=== PATIENT | female | born 1975 ===

== ENCOUNTER 2016-07-28 01:17 | Emergency (ER) | payer OTHER ==
--- NOTE | 2016-07-28 02:08 | ED ORDER SUMMARY ---
..... Patient: SHARRI MORENO OrderSheet [facility] VisitID: [id number] [place] [address] 40y, F Registration Date/Time: 07/28/2016 ORDER SHEET Weight: 63.5 kg (stated) Allergies: No Known Drug Allergy GENERAL ORDERS: Ankle 3 or 4V Left Urgent (01:34 07/28/2016 JQuivey R.N. per protocol) (Ack 1:37 Raquelegekimana) (Cancelled: Other1:43 JQuivey R.N.) Ankle 2V Left Urgent (01:43 07/28/2016 JQuivey R.N. per protocol) (Ack 1:45 Radhaimache) (1:47 JQuivey R.N.) Splint (LE) (Left) ([place]) (Fiberglass) (01:57 07/28/2016 Bj NESBITT) (Ack 2:13 JQuivey R.N.) (2:36 JQuivey R.N.) Crutches (01:58 07/28/2016 Bj NESBITT) (Ack 2:13 JQuivey R.N.) (2:36 JQuivey R.N.) MEDICATION ORDERS: Hydrocodone-APAP PO 10/650 mg (NOW) (01:57 07/28/2016 Bj NESBITT) (Ack 2:01 JQuivey R.N.) (2:04 JQuivey R.N.) IV FLUIDS: ORDER SHEET NOTES: [Electronically signed by Evert Deleon R.N. (02:37 07/28/2016)] [Electronically signed by Marcio Phelan MD (00:20 07/31/2016)] [Electronically locked/signed by Evert Deleon R.N. (02:37 07/28/2016)]
--- NOTE | 2016-07-28 02:08 | ED ORDER SUMMARY ---
..... Patient: SHARRI MORENO OrderSheet [facility] VisitID: [id number] [place] [address] 40y, F Registration Date/Time: 07/28/2016 ORDER SHEET Weight: 63.5 kg (stated) Allergies: No Known Drug Allergy GENERAL ORDERS: Ankle 3 or 4V Left Urgent (01:34 07/28/2016 JQuivey R.N. per protocol) (Ack 1:37 Raquelegekimana) (Cancelled: Other1:43 JQuivey R.N.) Ankle 2V Left Urgent (01:43 07/28/2016 JQuivey R.N. per protocol) (Ack 1:45 Radhaimache) (1:47 JQuivey R.N.) Splint (LE) (Left) ([place]) (Fiberglass) (01:57 07/28/2016 Bj NESBITT) (Ack 2:13 JQuivey R.N.) (2:36 JQuivey R.N.) Crutches (01:58 07/28/2016 Bj NESBITT) (Ack 2:13 JQuivey R.N.) (2:36 JQuivey R.N.) MEDICATION ORDERS: Hydrocodone-APAP PO 10/650 mg (NOW) (01:57 07/28/2016 Bj NESBITT) (Ack 2:01 JQuivey R.N.) (2:04 JQuivey R.N.) IV FLUIDS: ORDER SHEET NOTES: [Electronically signed by Evert Deleon R.N. (02:37 07/28/2016)] [Electronically signed by Marcio Phelan MD (00:20 07/31/2016)] [Electronically locked/signed by Evert Deleon R.N. (02:37 07/28/2016)]
--- NOTE | 2016-07-28 02:08 | ED CLINICAL REPORT ---
Clinical Report - Physicians/Mid Levels [facility] [address] [place] [address] 07/28/2016 1:20 [id number] Time Seen: 01:53 Jul 28 2016. Arrived- By private vehicle. Historian- patient. CPT: ER phys charges level 3 plus (#[id number]). HISTORY OF PRESENT ILLNESS Chief Complaint: Injury to the left ankle. The injury happened just prior to arrival. Occurred at home. ( Mechanism of injury: fell (GLF). ( Patient reports spilling some water at home and then slipping on the water as she was reaching for a towel).). The patient sustained a twisting injury. Fell. Patient is experiencing moderate pain. No other injury. REVIEW OF SYSTEMS The patient complains of pain on weight bearing. She has had swelling. No tingling, weakness, numbness, suspected foreign body or skin laceration. All systems otherwise negative, except as recorded above. PAST HISTORY COPD - Chronic Obstructive Pulmonary Disease. Asthma. Medications: PredniSONE Oral (pt unsure of dose ). Q-fritz 1 puff , 2x a day. Albuterol Sulfate Inhalation 2 puffs, PRN. Allergies: No Known Drug Allergy. SOCIAL HISTORY Light tobacco smoker (cigarette)- less than 1/2 a pack per day. No alcohol use or drug use. ADDITIONAL NOTES The nursing notes have been reviewed. PHYSICAL EXAM Vital Signs: 07/28/2016 01:26 BP: 118/73. HR: 83. RR: 17. O2 saturation: 100%. Temp: 98.3 F. Pain level now: 10/10. Appearance: Alert. Appears to be in pain. Patient in moderate distress. Head: Head atraumatic. ENT: Pharynx normal. Neck: Normal inspection. Neck supple. C-spine non-tender. CVS: Normal heart rate and rhythm. Heart sounds normal. Pulses normal. Respiratory: No respiratory distress. Breath sounds normal. Chest nontender. Abdomen: Soft and nontender. Back: Normal inspection. No tenderness. ROM normal. Skin: Skin intact. Skin warm. Extremities: Left lateral ankle: moderate tenderness, swelling and deformity consistent with a fracture of the lateral ligaments moderate. Limited ROM secondary to pain. Neurovascular intact distally. No ligamentous laxity present. No joint effusion. No abrasion or ecchymosis. No foot injury. Extremities otherwise negative. Gait: Gait not tested due to pain. Neuro, Vascular and Tendons: Vascular status intact. Sensation intact. Motor intact. Neuro: Oriented X 3. No motor deficit. No sensory deficit. LABS, X-RAYS, AND EKG Lt Ankle X-ray: Oblique fracture of the distal left fibula. No open fracture of the left fibula. Views: 3 view ankle series. Technique: good. The X-rays were independently viewed by me and interpreted contemporaneously by me. PROGRESS AND PROCEDURES Splint Application: Short leg and stirrup fiberglass splint applied to left ankle. Splint applied by tech with direct supervision by the ED physician. Reassessed extremity following splint application. Neurovascular intact. Follow-up recommended within 5 days. Course of Care: Vicodin 2 po Patient is stable. Patient/family counseled. Disposition: Discharged. Condition: stable. CLINICAL IMPRESSION Closed nondisplaced oblique fracture of the lateral malleolus of the left fibula. Fall on same level by slipping. INSTRUCTIONS Use crutches until released. Elevate affected areas above chest level today, for one days. No weight bearing. Warnings: SEDATIVE MEDICATION: You were given sedative medication during your visit. Do not drive or operate dangerous machinery. GENERAL WARNINGS: Return or contact your physician immediately if your condition worsens or changes unexpectedly, if not improving as expected, or if other problems arise. Prescription Medications: Hydrocodone/APAP 5mg/325mg: take 1 to 2 orally every 6 hours as needed for pain. Dispense fifteen (15). No refills. Follow-up: Follow up with your doctor in one week. Call for an appointment. Follow up with an orthopedic surgeon in one week. Call for an appointment. Understanding of the discharge instructions verbalized by patient and family. (Electronically signed by Marcio Phelan MD 07/31/2016 0:20)
--- NOTE | 2016-07-28 02:08 | ED NURSING NOTES ---
Clinical Report - Nurses [facility] [address] [place] [address] 07/28/2016 1:20 [id number] TRI[facility] Triage time 01:26. Acuity: LEVEL 4. Chief Complaint: INJURY TO LEFT ANKLE. 01:33. Alert. SEPSIS SCREEN: Sepsis Screen. Negative (no infection suspected/documented). AIDAN COMA SCORE: [place] Coma Scale: 15- eyes open spontaneously (4); best verbal response- oriented x 4 (5); best motor response- obeys commands (6). --01:33 Evert Deleon R.N. 01:26 07/28/16. BP: 118/73. HR: 83. RR: 17. O2 saturation: 100% on room air. Temp: 98.3 F. Pain level now: 03/05. --01:33 Evert Deleon R.N. Weight: 63.5 kg stated. Height/Length: 64 inches Per Patient. BMI: 24. --01:29 Evert Deleon R.N. Medications Albuterol Sulfate Inhalation 2 puffs, PRN. --01:29 Evert Deleon R.N. Q-fritz 1 puff , 2x a day. --01:29 Evert Deleon R.N. PredniSONE Oral (pt unsure of dose ). --01:30 Evert Deleon R.N. Allergies No Known Drug Allergy. --01:29 Evert Deleon R.N. Medication/allergy information source: the patient. --01:33 Evert Deleon R.N. History Arrived by private vehicle. Historian: patient. Accompanied by family. Primary physician ([facility]). This occurred (30 minutes ago). Occurred at home. Mechanism of injury: fell (GLF). ( Patient reports spilling some water at home and then slipping on the water as she was reaching for a towel). 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 PAST MEDICAL HX: Tetanus status: up-to-date. Immunizations: up-to-date. Last normal menstrual period was 2 weeks ago. SOCIAL HX: Current every day light tobacco smoker- less than 1/2 a pack per day. No alcohol use or drug use. No infectious disease exposure. ABUSE ASSESSMENT: No report of abuse. FALL RISK ASSESSMENT: Fall risk assessment completed. No fall risk identified. NUTRITIONAL RISK ASSESSMENT: The nutritional risk assessment revealed no deficiencies. FUNCTIONAL ASSESSMENT: Functional assessment: no impairments noted. LEARNING NEEDS ASSESSMENT: The learning needs assessment revealed no barriers. SKIN INTEGRITY ASSESSMENT: Skin integrity risk assessment completed. No skin integrity risk identified. --01:33 Evert Deleon R.N. PROBLEMS: COPD - Chronic Obstructive Pulmonary Disease. Asthma. --01:31 Evert Deleon R.N. ADDITIONAL SURGERIES: Cholecystectomy. --01:31 Evert Deleon R.N. Interventions ID band on patient. To treatment room. --01:33 Evert Deleon R.N. PHYSICAL ASSESSMENT 01:33. To room via wheelchair. GENERAL / NEURO / PSYCH: Oriented X 4. Alert. EXTREMITIES: Neuro-vascular status intact to the extremity. Left ankle: swelling. SKIN: Skin intact. Skin is warm and dry. --01:33 Evert Deleon R.N. NURSING PROGRESS NOTES 01:34. Cold pack applied to the left ankle. Two patient identifiers checked. Call light placed in reach. Side rails up x 1. Bed placed in lowest position. Brakes of bed on. Patient ready for evaluation- chart flagged. --01:34 Evert Deleon R.N. 01:40 Portable x-ray left ankle. --01:40 Evert Deleon R.N. 02:04 07/28/2016 Hydrocodone-APAP (Hydrocodone-Acetaminophen) PO 5/325 mg Tablets 2 tab given. Allergies verified, confirmed 5 rights and sedative warning given to the patient and patient's family. --02:04 Evert Deleon R.N. Fiberglass lower extremity splint applied to left ankle by tech. Distal pulses intact and sensation intact (0225). --02:33 Tamara Barker Patient fit with new crutches (0225). --02:33 Tamara Barker 02:23. The patient is calm and resting quietly. GENERAL / NEURO / PSYCH: Alert. Oriented X 4. RESPIRATORY: No respiratory distress. SKIN: Skin is warm and dry. --02:37 Evert Deleon R.N. DISPOSITION / DISCHARGE Departure time: 02:26. Condition at departure: stable. No learning barriers present. Discharge instructions provided and reviewed with the patient and family. Reviewed medication(s) side effects, precautions, dosing and course information. Prescription(s) given to the patient. Patient and family verbalized understanding. Written instructions provided in British. The patient was discharged home and accompanied by family and customer support executive. She left the Emergency Department in a wheelchair and via private vehicle. Family member driving. FALL RISK ASSESSMENT: Fall risk assessment completed. No fall risk identified. --02:35 Evert Deleon R.N. 02:26 Patient assisted into wc, and wheeled to parking lot. --02:36 Evert Deleon R.N. Locked/Released at 07/28/2016 2:37 by Evert Deleon R.N.
--- NOTE | 2016-07-28 02:08 | ED CLINICAL REPORT ---
Clinical Report - Physicians/Mid Levels [facility] [address] [place] [address] 07/28/2016 1:20 [id number] Time Seen: 01:53 Jul 28 2016. Arrived- By private vehicle. Historian- patient. CPT: ER phys charges level 3 plus (#[id number]). HISTORY OF PRESENT ILLNESS Chief Complaint: Injury to the left ankle. The injury happened just prior to arrival. Occurred at home. ( Mechanism of injury: fell (GLF). ( Patient reports spilling some water at home and then slipping on the water as she was reaching for a towel).). The patient sustained a twisting injury. Fell. Patient is experiencing moderate pain. No other injury. REVIEW OF SYSTEMS The patient complains of pain on weight bearing. She has had swelling. No tingling, weakness, numbness, suspected foreign body or skin laceration. All systems otherwise negative, except as recorded above. PAST HISTORY COPD - Chronic Obstructive Pulmonary Disease. Asthma. Medications: PredniSONE Oral (pt unsure of dose ). Q-fritz 1 puff , 2x a day. Albuterol Sulfate Inhalation 2 puffs, PRN. Allergies: No Known Drug Allergy. SOCIAL HISTORY Light tobacco smoker (cigarette)- less than 1/2 a pack per day. No alcohol use or drug use. ADDITIONAL NOTES The nursing notes have been reviewed. PHYSICAL EXAM Vital Signs: 07/28/2016 01:26 BP: 118/73. HR: 83. RR: 17. O2 saturation: 100%. Temp: 98.3 F. Pain level now: 10/10. Appearance: Alert. Appears to be in pain. Patient in moderate distress. Head: Head atraumatic. ENT: Pharynx normal. Neck: Normal inspection. Neck supple. C-spine non-tender. CVS: Normal heart rate and rhythm. Heart sounds normal. Pulses normal. Respiratory: No respiratory distress. Breath sounds normal. Chest nontender. Abdomen: Soft and nontender. Back: Normal inspection. No tenderness. ROM normal. Skin: Skin intact. Skin warm. Extremities: Left lateral ankle: moderate tenderness, swelling and deformity consistent with a fracture of the lateral ligaments moderate. Limited ROM secondary to pain. Neurovascular intact distally. No ligamentous laxity present. No joint effusion. No abrasion or ecchymosis. No foot injury. Extremities otherwise negative. Gait: Gait not tested due to pain. Neuro, Vascular and Tendons: Vascular status intact. Sensation intact. Motor intact. Neuro: Oriented X 3. No motor deficit. No sensory deficit. LABS, X-RAYS, AND EKG Lt Ankle X-ray: Oblique fracture of the distal left fibula. No open fracture of the left fibula. Views: 3 view ankle series. Technique: good. The X-rays were independently viewed by me and interpreted contemporaneously by me. PROGRESS AND PROCEDURES Splint Application: Short leg and stirrup fiberglass splint applied to left ankle. Splint applied by tech with direct supervision by the ED physician. Reassessed extremity following splint application. Neurovascular intact. Follow-up recommended within 5 days. Course of Care: Vicodin 2 po Patient is stable. Patient/family counseled. Disposition: Discharged. Condition: stable. CLINICAL IMPRESSION Closed nondisplaced oblique fracture of the lateral malleolus of the left fibula. Fall on same level by slipping. INSTRUCTIONS Use crutches until released. Elevate affected areas above chest level today, for one days. No weight bearing. Warnings: SEDATIVE MEDICATION: You were given sedative medication during your visit. Do not drive or operate dangerous machinery. GENERAL WARNINGS: Return or contact your physician immediately if your condition worsens or changes unexpectedly, if not improving as expected, or if other problems arise. Prescription Medications: Hydrocodone/APAP 5mg/325mg: take 1 to 2 orally every 6 hours as needed for pain. Dispense fifteen (15). No refills. Follow-up: Follow up with your doctor in one week. Call for an appointment. Follow up with an orthopedic surgeon in one week. Call for an appointment. Understanding of the discharge instructions verbalized by patient and family. (Electronically signed by Marcio Phelan MD 07/31/2016 0:20)
--- NOTE | 2016-07-28 02:08 | ED NURSING NOTES ---
Clinical Report - Nurses [facility] [address] [place] [address] 07/28/2016 1:20 [id number] Triage time 01:26. Acuity: LEVEL 4. Chief Complaint: INJURY TO LEFT ANKLE. 01:33. Alert. SEPSIS SCREEN: Sepsis Screen. Negative (no infection suspected/documented). AIDAN COMA SCORE: [place] Coma Scale: 15- eyes open spontaneously (4); best verbal response- oriented x 4 (5); best motor response- obeys commands (6). --01:33 Evert Deleon R.N. 01:26 07/28/16. BP: 118/73. HR: 83. RR: 17. O2 saturation: 100% on room air. Temp: 98.3 F. Pain level now: 03/05. --01:33 Evert Deleon R.N. Weight: 63.5 kg stated. Height/Length: 64 inches Per Patient. BMI: 24. --01:29 Evert Deleon R.N. Medications Albuterol Sulfate Inhalation 2 puffs, PRN. --01:29 Evert Deleon R.N. Q-fritz 1 puff , 2x a day. --01:29 Evert Deleon R.N. PredniSONE Oral (pt unsure of dose ). --01:30 Evert Deleon R.N. Allergies No Known Drug Allergy. --01:29 Evert Deleon R.N. Medication/allergy information source: the patient. --01:33 Evert Deleon R.N. History Arrived by private vehicle. Historian: patient. Accompanied by family. Primary physician ([facility]). This occurred (30 minutes ago). Occurred at home. Mechanism of injury: fell (GLF). ( Patient reports spilling some water at home and then slipping on the water as she was reaching for a towel). 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 PAST MEDICAL HX: Tetanus status: up-to-date. Immunizations: up-to-date. Last normal menstrual period was 2 weeks ago. SOCIAL HX: Current every day light tobacco smoker- less than 1/2 a pack per day. No alcohol use or drug use. No infectious disease exposure. ABUSE ASSESSMENT: No report of abuse. FALL RISK ASSESSMENT: Fall risk assessment completed. No fall risk identified. NUTRITIONAL RISK ASSESSMENT: The nutritional risk assessment revealed no deficiencies. FUNCTIONAL ASSESSMENT: Functional assessment: no impairments noted. LEARNING NEEDS ASSESSMENT: The learning needs assessment revealed no barriers. SKIN INTEGRITY ASSESSMENT: Skin integrity risk assessment completed. No skin integrity risk identified. --01:33 Evert Deleon R.N. PROBLEMS: COPD - Chronic Obstructive Pulmonary Disease. Asthma. --01:31 Evert Deleon R.N. ADDITIONAL SURGERIES: Cholecystectomy. --01:31 Evert Deleon R.N. Interventions ID band on patient. To treatment room. --01:33 Evert Deleon R.N. PHYSICAL ASSESSMENT 01:33. To room via wheelchair. GENERAL / NEURO / PSYCH: Oriented X 4. Alert. EXTREMITIES: Neuro-vascular status intact to the extremity. Left ankle: swelling. SKIN: Skin intact. Skin is warm and dry. --01:33 Evert Deleon R.N. NURSING PROGRESS NOTES 01:34. Cold pack applied to the left ankle. Two patient identifiers checked. Call light placed in reach. Side rails up x 1. Bed placed in lowest position. Brakes of bed on. Patient ready for evaluation- chart flagged. --01:34 Evert Deleon R.N. 01:40 Portable x-ray left ankle. --01:40 Evert Deleon R.N. 02:04 07/28/2016 Hydrocodone-APAP (Hydrocodone-Acetaminophen) PO 5/325 mg Tablets 2 tab given. Allergies verified, confirmed 5 rights and sedative warning given to the patient and patient's family. --02:04 Evert Deleon R.N. Fiberglass lower extremity splint applied to left ankle by tech. Distal pulses intact and sensation intact (0225). --02:33 Tamara Barker Patient fit with new crutches (0225). --02:33 Tamara Barker 02:23. The patient is calm and resting quietly. GENERAL / NEURO / PSYCH: Alert. Oriented X 4. RESPIRATORY: No respiratory distress. SKIN: Skin is warm and dry. --02:37 Evert Deleon R.N. DISPOSITION / DISCHARGE Departure time: 02:26. Condition at departure: stable. No learning barriers present. Discharge instructions provided and reviewed with the patient and family. Reviewed medication(s) side effects, precautions, dosing and course information. Prescription(s) given to the patient. Patient and family verbalized understanding. Written instructions provided in Grenadian. The patient was discharged home and accompanied by family and soil conservation teacher. She left the Emergency Department in a wheelchair and via private vehicle. Family member driving. FALL RISK ASSESSMENT: Fall risk assessment completed. No fall risk identified. --02:35 Evert Deleon R.N. 02:26 Patient assisted into wc, and wheeled to parking lot. --02:36 Evert Deleon R.N. Locked/Released at 07/28/2016 2:37 by Evert Deleon R.N.
--- NOTE | 2016-07-28 10:41 | DIAGNOSTIC IMAGING REPORT ---
PROCEDURE: XR ANKLE 1 OR 2 VIEWS - LEFT INDICATION: Fall injury, initial encounter TECHNIQUE: AP and lateral views. COMPARISON: Left ankle x-ray 06/08/2008 FINDINGS: Oblique fracture of the distal fibula with minor lateral displacement of the distal fragment. Minor widening of the ankle mortise medially. Small plantar calcaneal spur. There is soft tissue swelling laterally. IMPRESSION: 1. Oblique fracture distal left fibula
--- NOTE | 2016-07-31 00:20 | ED MED RECONCILIATION SUMMARY ---
Patient: SHARRI MORENO Medication Reconciliation Report [facility] VisitID: [id number] [address] [place] [address] 40y, F Registration Date/Time: 07/28/2016 Weight: 63.5 kg Height/Length: 64 in. BMI: 24.0 ALLERGIES: No Known Drug Allergy The patient's Home Medications are listed below: THE FOLLOWING MEDICATIONS NEED TO BE RECONCILED: Albuterol Sulfate Inhalation 2 puffs, PRN PredniSONE Oral, pt unsure of dose Q-fritz 1 puff , 2x a day The source(s) of the original Home Medication information: patient The following Medications were given to the patient in the Emergency Department: Hydrocodone-APAP [PO] PO 2 tab, administered: 07/28/2016 2:04:00 AM The following Medications were prescribed to the patient: Hydrocodone/APAP 5mg/325mg: take 1 to 2 orally every 6 hours as needed for pain. Dispense fifteen (15). No refills. -- Marcio Phelan MD
--- NOTE | 2016-07-31 00:20 | ED MED RECONCILIATION SUMMARY ---
Patient: SHARRI MORENO Medication Reconciliation Report [facility] VisitID: [id number] [address] [place] [address] 40y, F Registration Date/Time: 07/28/2016 Weight: 63.5 kg Height/Length: 64 in. BMI: 24.0 ALLERGIES: No Known Drug Allergy The patient's Home Medications are listed below: THE FOLLOWING MEDICATIONS NEED TO BE RECONCILED: Albuterol Sulfate Inhalation 2 puffs, PRN PredniSONE Oral, pt unsure of dose Q-fritz 1 puff , 2x a day The source(s) of the original Home Medication information: patient The following Medications were given to the patient in the Emergency Department: Hydrocodone-APAP [PO] PO 2 tab, administered: 07/28/2016 2:04:00 AM The following Medications were prescribed to the patient: Hydrocodone/APAP 5mg/325mg: take 1 to 2 orally every 6 hours as needed for pain. Dispense fifteen (15). No refills. -- Marcio Phelan MD
--- NOTE | 2016-07-31 00:20 | ED MAR SUMMARY ---
..... Medication Administration Record [address] [place] [address] Patient: SHARRI MORENO Visit ID: [id number] 40y, F Weight: 63.5 kg Height/Length: 64 in BMI: 24 ALLERGIES: No Known Drug Allergy Given 02:04 07/28/2016 Evert Deleon R.N. Medication Administered: HYDROCODONE-APAP [PO] (HYDROCODONE-ACETAMINOPHEN), Dose: 2 tab 5/325 mg Tablets PO. Medication Ordered: Hydrocodone-APAP PO 10/650 mg (NOW).
--- NOTE | 2016-07-31 00:20 | ED DISCHARGE INSTRUCTIONS ---
Patient: SHARRI MORENO General Instructions [facility] VisitID: [id number] [place] [address] 40y, F Registration Date/Time: 07/28/2016 Closed nondisplaced oblique fracture of the lateral malleolus of the left fibula. Fall on same level by slipping. INSTRUCTIONS Use crutches until released. Elevate affected areas above chest level today, for one days. No weight bearing. Warnings: SEDATIVE MEDICATION: You were given sedative medication during your visit. Do not drive or operate dangerous machinery. GENERAL WARNINGS: Return or contact your physician immediately if your condition worsens or changes unexpectedly, if not improving as expected, or if other problems arise. Prescription Medications: Hydrocodone/APAP 5mg/325mg: take 1 to 2 orally every 6 hours as needed for pain. Dispense fifteen (15). No refills. Follow-up: Follow up with your doctor in one week. Call for an appointment. Follow up with an orthopedic surgeon in one week. Call for an appointment. Understanding of the discharge instructions verbalized by patient and family. ADDITIONAL INFORMATION Mechanical Fall You have had a fall today. It appears that the cause is mechanical. That means that you slipped, tripped or lost your balance. If your fall had been due to fainting or a seizure, further tests would be required. Home Care: Rest today and resume your normal activities when you are feeling back to normal. If you were injured during the fall, follow the advice from your doctor regarding care of your injury. You may use acetaminophen (Tylenol) or ibuprofen (Motrin, Advil) to control pain, unless another pain medicine was prescribed. [NOTE: If you have chronic liver or kidney disease or ever had a stomach ulcer or GI bleeding, talk with your doctor before using these medicines.] Fall Prevention: Was there anything that caused your fall that can be fixed, removed, or replaced? Make your home safe by keeping walkways clear of objects you may trip over. Use non-slip pads under rugs. Do not walk in poorly lit areas. Do not stand on chairs or wobbly ladders. Use caution when reaching overhead or looking upward. This position can cause a loss of balance. Be sure your shoes fit properly, have non-slip bottoms and are in good condition. Be cautious when going up and down curbs, and walking on uneven sidewalks. If your balance is poor, consider using a cane or walker. Stay as active as you can. Balance, flexibility, strength, and endurance all come from exercise. They all play a role in preventing falls. Follow Up with your doctor or as advised by our staff. Get Prompt Medical Attention if any of the following occur: Repeated mechanical falls, or unexplained falls Dizziness, fainting or seizure Severe headache Chest pain or shortness of breath Palpitations (very rapid or very slow or irregular heartbeat) Blood in vomit, stools (black or red color) Weakness of an arm or leg or one side of the face Difficulty with speech or vision Fracture,Ankle, Distal Fibula You have a fracture (broken bone) of the end of the fibula bone. This is one of two bones that support the ankle joint. Home Care: You will be given a splint, cast or special boot to prevent movement at the site of injury. Do not put weight on a splint; it will break. Follow your doctor's advice regarding when to begin bearing weight on a cast or boot. Keep your leg elevated when sitting or lying down. When sleeping, place a pillow under the injured leg. When sitting, support the injured leg so it is level with your waist. This is very important during the first 48 hours. Keep the cast/splint completely dry at all times. When bathing, protect the cast/splint with a large plastic bag, rubber-banded at the top end. If a fiberglass cast or splint gets wet, you can dry it with a hair-dryer. Place an ice pack (ice cubes in a plastic bag, wrapped in a towel) on the splint/cast over the injured area for 20 minutes every 2 hours during the first day.You can place the ice pack directly over the splint/cast. Continue this 3-4 times a day for the next two days. You may use acetaminophen (Tylenol) or ibuprofen (Motrin, Advil) to control pain, unless another pain medicine was prescribed. [NOTE: If you have chronic liver or kidney disease or ever had a stomach ulcer or GI bleeding, talk with your doctor before using these medicines.] Follow Up with your doctor in one week, or as advised by our staff, to be sure the bone is healing properly. If you were given a splint, it may be changed to a cast after the swelling goes down. [NOTE: A radiologist will review any X-rays that were taken. We will notify you of any new findings that may affect your care.] Get Prompt Medical Attention if any of the following occur: The plaster cast or splint becomes wet or soft The fiberglass cast or splint remains wet for more than 24 hours Increased tightness or pain under the cast or splint Toes become swollen, cold, blue, numb or tingly Crutch Walking Crutch Adjustment Make sure the crutches you use are adjusted to fit you. When you stand, there should be room to fit 2-3 fingers between the top of the crutch and your armpit. 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 Crutch Walking: Place the crutches forward 12" in front of and 6" to the side of your feet. Lean your weight forward as you push down on the handgrips. Your weight should be on your hands and yourstrong leg, not your armpits . Let your body swing through, landing on the strong leg. Advance the crutches forward again. The crutch and the injured leg should move together. Going Up Steps: ("Up with the good") With both crutches on the same step as your feet, push down on the handgrips. Balancing with very light pressure on the weak leg, let your hands support your weight as you raise your strong leg onto the next higher step. Transfer all your weight to your strong leg (still bent) as you move the crutches up to the next step alongside the strong leg. With your weight evenly balanced on the two crutches and your strong leg, straighten your strong knee as you raise the weak leg up to the next step. Going Down Steps: ("Down with the bad") With both crutches on the same step as your feet, push down on the handgrips. With your weight evenly balanced on the two crutches and your strong leg, bend your strong knee as you lower the weak leg down to the next step. Let your strong leg support you (still bent) as you move the crutches down alongside the weak leg. Transfer your weight to your hands, balancing with very light pressure on the weak leg as you lower your strong leg alongside your weak leg. You have been given the following additional information: Fall, Mechanical Ankle Fracture (Distal Fibula), Closed Crutch Walking No weight bearing. (Electronically signed by Marcio Phelan MD 07/31/2016 0:20)
--- NOTE | 2016-07-31 00:20 | ED MAR SUMMARY ---
..... Medication Administration Record [address] [place] [address] Patient: SHARRI MORENO Visit ID: [id number] 40y, F Weight: 63.5 kg Height/Length: 64 in BMI: 24 ALLERGIES: No Known Drug Allergy Given 02:04 07/28/2016 Evert Deleon R.N. Medication Administered: HYDROCODONE-APAP [PO] (HYDROCODONE-ACETAMINOPHEN), Dose: 2 tab 5/325 mg Tablets PO. Medication Ordered: Hydrocodone-APAP PO 10/650 mg (NOW).
== END 2016-07-28 02:26 | disposition home or self-care (01) ==
LOC: ED SRH 01:17
DX: S82.435A Nondisplaced oblique fracture of shaft of left fibula, initial encounter for closed fracture (principal); W01.0XXA Fall on same level from slipping, tripping and stumbling without subsequent striking against object, initial encounter; Y93.89 Activity, other specified; Y92.009 Unspecified place in unspecified non-institutional (private) residence as the place of occurrence of the external cause; Y99.9 Unspecified external cause status; J44.9 Chronic obstructive pulmonary disease, unspecified; F17.210 Nicotine dependence, cigarettes, uncomplicated; Z79.51 Long term (current) use of inhaled steroids